=== PATIENT | female | born 1985 | race Caucasian/White ===

== ENCOUNTER 2021-12-26 20:05 | Inpatient (IN) | payer BC ==
[~2021-12-26] VITALS: Ht 177.8 cm; Wt 78.2 kg
--- NOTE | 2021-12-26 20:15 | NUR ---
G1L0. 39.1. Ambulatory to LDR 4 with spouse. Clean gown on. EFM and TOCO explained and applied. Pt states she thinks her water broke but is also having "a lot of bleeding." Pt reports bleeding since last tuesday on and off since checked her cervix. Reports good movement. Pts pad with roula red blood. SVE completed but unable to complete amniotest due to bleeding. Plan of care explained. 2035: called and updated on pts status. See physican notification. Pt up to bathroom. Increased bleeding with roula red bleeding noted. This RN assessed paper towel. 2044: requested at hospital to assess bleeding. 2104: at bedside for speculum exam. Pt repositioned into footplates. Spec exam completed by with pooling noted to speculum. SROM noted at 1930 tonight. SVE unchanged by provider. Plan of care and questions answered by . Admit orders received.
[2021-12-26 20:30] VITALS: BP 134/88; PULSE 71; TEMP 99.2
[2021-12-26] MEDS ORDERED: PRENATAL MVI PO (20:31)
[2021-12-26 21:45] VITALS: BP 149/71; PULSE 64
--- NOTE | 2021-12-26 21:55 | NUR ---
18G IV started in left wrist with 1 attempt. Admission labs obtained off IV site. Lactated ringers infusing to gravity. Consents reviewed with patient and spouse, verbalized understanding.
[2021-12-26 22:15] VITALS: BP 127/62; PULSE 67
[2021-12-26 22:24] LABS: BASO % 0.4 % (0.0-2.0); EOS % 0.3 % (0.0-4.0); GRAN # 7.9 K/mm3 (1.4-6.5); GRAN % 74.7 % (42.2-75.2); HEMOGLOBIN 12.1 g/dl (12.5-16.0); LYMPH # 1.8 K/mm3 (1.2-3.4); MEAN CELL VOLUME 89 fl (80.0-100.0); MEAN CORPUSCULAR HEMOGLOBIN 31 pg (27-31); MEAN CORPUSCULAR HGB CONC 35 g/dl (33.0-37.0); MEAN PLATELET VOLUME 10.7 fl (7.4-10.4); MONO # 0.8 K/mm3 (0.1-0.6); MONO % 7.2 % (1.7-9.3); PLATELET COUNT 142 K/mm3 (130-400); RED BLOOD COUNT 3.88 M/mm3 (4.10-5.30); REDCELL DISTRIBUTION WIDTH-CV 12.2 % (11.5-14.5)
[2021-12-26 22:26] LABS: HEMATOCRIT 34.7 % (37.0-47.0)
[2021-12-26 22:45] VITALS: BP 131/65; PULSE 69
[2021-12-26 23:30] VITALS: BP 115/54; PULSE 76
[2021-12-27] VITALS (26 sets, daily range): BP systolic 112–149; BP diastolic 58–87; PULSE 61–109; TEMP 97.7–99
--- NOTE | 2021-12-27 00:14 | NUR ---
2345 - Pt requesting epidural at this time. BHAVIN Stephen notified. Will come to hospital. 0010 - BHAVIN Stephen at bedside. Pt positioned to sitting on edge of bed. Epidural procedure, risks, and benefits reviewed with patient and spouse, verbalized understanding. 0013 - Difficulty tracing FHR due to maternal positioning. Tracing maternal HR verified by pulse oximeter. 0014 - Single shot by BHAVIN Stephen. Pt denies any adverse reactions. 0019 - Pt positioned to left lateral. Safety precautions reviewed. Bed in low and locked position. Call light within reach. See anesthesia record.
--- NOTE | 2021-12-27 01:10 | NUR ---
16F Fountain catheter placed to dependent drainage at this time. Clear, yellow urine returned. Secured to leg with statlock. SVE /-2. Reviewed plan of care with patient and spouse.
--- NOTE | 2021-12-27 03:15 | NUR ---
SVE complete/+3, patient back to right lateral position. Dr. Morales notified. Room set up for delivery.
--- NOTE | 2021-12-27 03:42 | NUR ---
0330 - Dr. Morales at bedside. Fountain catheter out, 300 mL clear yellow urine out. Pt positioned into footplates. Educated on pushing techniques, verbalized understanding. 0333 - Initial push at this time. Pushing well with contractions. Nursery nurse Steven at bedside. 0335 - Dr. Morales gowned and gloved at perineum. 0342 - Spontaneous delivery of viable infant girl. placed to mothers abdomen, care of infant assumed to DAY Harris. Cord clamped x [address] Morales and cut by FOB. Cord blood obtained. 0347 - Spontaneous delivery of intact placenta. Pitocin started at 333 mL/hr per protocol. Fundal massage by Dr. Morales with small amount of bleeding. Fundus down 3 from umbilicus. Second degree and left labial laceration repaired by Dr. Morales. Epidural off. EBL 250. 0400 - Pericare provided. New chux beneath patient. Ice pack to perineum. Pt positioned in bed for comfort. recovery started. See physician delivery note.
[2021-12-27] MEDS ORDERED: MOTRIN 800800 MG/TAB PO (09:20)
[2021-12-28] VITALS: BP 134/80; PULSE 60; TEMP 97.8
[2021-12-28 04:15] VITALS: BP 108/61; PULSE 73; TEMP 98.2
[2021-12-28 08:20] VITALS: BP 117/71; PULSE 64; TEMP 97.9
--- NOTE | 2021-12-28 09:30 | NUR ---
Initial visit; Parents thanked [facility] for offering congratulations and God's blessings for the of their daughter. [facility] thanked family for choosing [facility].
[2021-12-28 16:30] VITALS: BP 118/62; PULSE 68; TEMP 98
--- NOTE | 2021-12-28 18:17 | NUR ---
Discharge instructions reviewed with pt and pt's spouse regarding pain control/medications, hayley care, and follow-up appointment. Pt and spouse verbalize understanding, deny questions or conerns at this time. Pt reports will get dressed and then put baby in carseat and be ready to discharge.
== END 2021-12-28 18:55 | disposition home or self-care (01) | DRG 807 ==
LOC: LDRO 20:05 → OB 21:29 → LDR 21:29 → OB 12-27 08:00
PROVIDERS: Student in an Organized Health Care Education/Training Program; ADMIT Obstetrics & Gynecology
PROC: 10E0XZZ Delivery of Products of Conception, External Approach (ICD-10-PCS; principal; 2021-12-27)
PROC: 0KQM0ZZ Repair Perineum Muscle, Open Approach (ICD-10-PCS; 2021-12-27)
DX: O70.1 Second degree perineal laceration during delivery (principal); Z37.0 Single live birth; Z3A.39 39 weeks gestation of pregnancy
CPT/HCPCS: J2590; J2795; J7120

== ENCOUNTER → 2022-01-01 | Outpatient (CLI) | payer BC ==
[~2022-01-01] MED LIST: MOTRIN 800800 MG/TAB PO; PRENATAL MVI PO
--- NOTE | 2022-01-01 15:40 | NUR ---
Pt, Kalee Delgado, presents for outpatient consult with 5 day old baby girl, Spring Betancourt, and pt's spouse Jaxon Betancourt for evaluation for sore nipples, and frequent feedings. Spring was born on 12/27/2019 and weighed 7# 1.2oz. Her discharge weight was reportedly 6# 14oz, and at her first appointment with Dr. Han on 12/30/21 she weighed 6# 9.2oz. Today Spring weights 6# 10.9oz, gaining 1.7oz over 2 days. Family reports QS voids and stools, although they are "small". Stools are yellow and seedy or runny. Pt reports breasts felt most uncomfortable with engorgement at 3 days of ages and that it is resolving. They report Spring eats every 2 hours for 40 minutes, with converstation it is discovered that she is only feeding one breast at a time. Advised to feed bilaterally and not allow Spring to sleep at the breast. Pt advised on adjusting latch so the nipple lays up against the roof of the mouth more, and she is able to get more areola into her mouth. Swallows are occassional, pt instructed on breast compression to help more more milk down. After bilaterally Spring had a weight gain of 42gms. She was still rooting so placed back to the breast. Additional gain was 10 gms, for a total intake of 52ml. She was still rooting during the weighing and diaper change. Uses of supplement if Spring is not content also discussed as an option but because of adequate weight gain at this appt, not "required". Spring has a nice void and adequate yellow stool while here. POC: BF bilaterally with tips provided for a more comfortable latch. Utilize switch nursing, 06/07/06/07, to keep Spring more active. Supplement if desired. F/U: TuesdayJanuary 05 at 1300 with this LC. Questions invited and answered.
== END ==
LOC: LAC 11:37
DX: Z39.1 Encounter for care and examination of lactating mother (principal); Z71.89 Other specified counseling

== ENCOUNTER → 2022-01-05 | Outpatient (CLI) | payer BC ==
--- NOTE | 2022-01-05 13:38 | NUR ---
Pt, Kalee Delgado, presents for outpatient consult with 9 day old baby girl, Spring Lopes, and her spouse Jaxon Lopes. They were seen four days ago with general concerns. Spring was born on [birth year] and weighed 7# 1.2oz. On 01/01/22 she weighed 6#10.9oz (3031 gms). This family has continued to follow Spring's feeding behavior, reporting she has feedings q 2-3 hours and an occassional longer sleep. Her voids and stools have increased as well. Today Spring weighs 7# 0.9oz (3202 gms)for a gain of 6oz over 4 days. Pt reports Spring has started feeding more frequently in the last 24 hours, and not acting satisfied after most feedings. Pt has started herbal supplements for increasing milk supply. Notes she and baby are a bit more gassy. After initially Spring has a gain of 46 gms (1.7oz). She is still rooting, placed back to the breast and has an additional gain of 16gms, for total gain of 2.2oz (62 gms). She does not act content but settles with the pacifier. LC advises on growth spurts, and continue to feed on demand. Discussion was also had about using breastpump on already nursed side to increase milk supply and have a little collected to feed back based on Spring's behavior. Because of weight gain thus far without supplement, they were not advised to add formula. POC: Condintue BF as described, add pumping as described, supplement EBM as desired. F/U: Telephone report from family to this LC in two days to discuss situation and determine if follow up consult is needed. Questions invited and answered.
== END ==
LOC: LAC 08:07
DX: Z39.1 Encounter for care and examination of lactating mother (principal)

== ENCOUNTER → 2022-01-08 | Outpatient (CLI) | payer BC ==
--- NOTE | 2022-01-08 14:34 | NUR ---
Pt, Kalee Delgado, presents for follow up outpatient consult with 12 day old baby girl, Spring Delgado, and her spouse Yomi to see if Spring can latch better on the left side and what her intake is because she acts hungry after feeding despite weight gain. Spring was born on 12/27/2019 and weighed 7#102oz (3209 gms). On 01/05/2022 she weighed 7# 0.9 oz (3201 gms). Today Spring weighs 7#4.4oz (3300 gms). Pt states Spring continues to eat q 2-3 hours, but is sleeping better at noc. She nurses bilaterally but still has some rooting after at the daytime feedings. Her voids and stools continue to be qs. Pt c/o soreness and Spring not remaining latched well to the left breast. She is assisted/instructed with football hold and Spring stays at breast well for the feeding. She nurses about 10 min per breast. Also of note is several Pea size lumps in the breasts bilaterally. Pt advised to massage these areas as she nurses. Pt nurses independantly on the right breast, switching her to football hold about 1/[address] through feedings. Post feed gain is 74 gms (2.6oz). She is a little more content than usual. Pt has also changed her herbal supplements to a version without Fenugreek, which may be helping with gassiness. Pt uses breastpump after to evaluate if there is much milk left over. She collects just over 30ml. This is saved for use if Spring does not settle and seems to want a little top off. If it is not needed it can be saved. POC: continue bilaterally on demand. Use heat and massage to help reduce lumps in breasts. Be a little more assertive with getting more areola into baby's mouth with latching. Pump 1-2 times daily to help with milk volume, feed in football hold if Spring stays latched better. F/U: As needed per pt request with this LC and as scheduled with Dr. Han. Questions invited and answered.
== END ==
LOC: LAC 14:04
DX: Z39.1 Encounter for care and examination of lactating mother (principal)

== ENCOUNTER → 2022-02-11 | Outpatient (CLI) | payer BC | LOC: MC.RAD 11:00 | DX: N63.14 Unspecified lump in the right breast, lower inner quadrant (principal) ==